=== PATIENT | female | born 1955 | race Caucasian/White ===

== ENCOUNTER 2016-05-06 04:47 | Outpatient (CLI) | payer OTHER ==
--- NOTE | 2016-05-06 08:22 | DIAGNOSTIC IMAGING REPORT ---
PROCEDURE: XR LUMBAR SPINE 2 OR 3 VIEWS INDICATION: PAIN TECHNIQUE: Three views of the lumbar spine COMPARISON: None. FINDINGS: Six non-rib bearing vertebral bodies are present. Normal vertebral body height without fracture. Mild leftward curvature with the apex at L3-4. Trace leftward subluxation of L4-5. Grade 1 retrolisthesis L1 onL2, L2 on 3, L3 -4, and grade 1 anterolisthesis L6 onS1. Moderate disc height loss at every level. Mild endplate spurring diffusely. Mild facet hypertrophy in the lower lumbar levels. The visible osseous pelvis and bowel gas pattern are normal. Surgical clips in the gallbladder fossa. IMPRESSION: 1. Multilevel degenerative disc height loss 2. Mild, multilevel degenerative listhesis as described
--- NOTE | 2016-05-06 08:25 | DIAGNOSTIC IMAGING REPORT ---
PROCEDURE: XR THORACIC SPINE 3 VIEWS INDICATION: PAIN TECHNIQUE: Three views of the thoracic spine COMPARISON: None. FINDINGS: 12 thoracic vertebral bodies are normal in height without fracture. Mild degenerative endplate spurring in the mid thoracic spine. The disc spaces are mildly decreased in the mid thoracic spine. No scoliosis. No AP subluxation. Paraspinal soft tissue stripe is normal. The visible soft tissues and ribs are normal. IMPRESSION: 1. Intact thoracic spine. 2. Mild degenerative changes.
== END 2016-05-06 23:00 ==
LOC: XR SRH 04:47
DX: M54.89 Other dorsalgia (principal)

== ENCOUNTER 2016-06-15 06:12 | Emergency (ER) | payer OTHER ==
--- NOTE | 2016-06-15 07:20 | DIAGNOSTIC IMAGING REPORT ---
PROCEDURE: XR CERVICAL SPINE 2 OR 3 VIEW INDICATION: NECK TRAUMA/INJURY TECHNIQUE: Three views. COMPARISON: None. FINDINGS: Normal alignment without fracture. Mild reversal of the normal cervical lordosis. Moderate multilevel disc space narrowing and spur formation. Odontoid, lateral masses of C1 and prevertebral soft tissues are normal. IMPRESSION: 1. Reversal of the normal cervical lordosis suggestive of muscular spasm 2. Moderate degenerative changes.
--- NOTE | 2016-06-15 08:04 | ED ORDER SUMMARY ---
..... Patient: JAYASHREE SHARP OrderSheet [facility] VisitID: [id number] [address] [place] [address] 61y, F Registration Date/Time: 06/15/2016 ORDER SHEET Weight: 127.0 kg Allergies: No Known Drug Allergy GENERAL ORDERS: Cervical Spine 2 or 3V Urgent (06:38 06/15/2016 Cheri Trammell) (Ack 6:40 Daron) (6:54 Don) MEDICATION ORDERS: IV FLUIDS: ORDER SHEET NOTES: [Electronically signed by Jose Maxwell Dr. (10:48 06/15/2016)] [Electronically signed by Steve Dias R.N. (18:47 06/15/2016)] [Electronically locked/signed by Steve Dias R.N. (18:47 06/15/2016)]
--- NOTE | 2016-06-15 08:04 | ED ORDER SUMMARY ---
..... Patient: JAYASHREE SHARP OrderSheet [facility] VisitID: [id number] [address] [place] [address] 61y, F Registration Date/Time: 06/15/2016 ORDER SHEET Weight: 127.0 kg Allergies: No Known Drug Allergy GENERAL ORDERS: Cervical Spine 2 or 3V Urgent (06:38 06/15/2016 Cheri Trammell) (Ack 6:40 Daron) (6:54 Don) MEDICATION ORDERS: IV FLUIDS: ORDER SHEET NOTES: [Electronically signed by Jose Maxwell Dr. (10:48 06/15/2016)] [Electronically signed by Steve Dias R.N. (18:47 06/15/2016)] [Electronically locked/signed by Steve Dias R.N. (18:47 06/15/2016)]
--- NOTE | 2016-06-15 08:04 | ED NURSING NOTES ---
Clinical Report - Nurses [facility] [address] [place] [address] 06/15/2016 6:13 Patient: JAYASHREE SHARP TRIAGE Triage time 06:18. Acuity: LEVEL 4. Chief Complaint: NECK PAIN. Alert. No acute distress. --06:24 TonyaB, R.N. 06:18 06/15/16. BP: 154/101. HR: 94. RR: 16. O2 saturation: 99%. Temp: 98.4 F. Pain level now: 07/10. --06:24 TonyaB, R.N. Weight: 127 kg. Height/Length: 65 inches. BMI: 46.6. --06:23 TonyaB, R.N. Medications Levoxyl Oral. --06:20 TonyaB, R.N. Zantac Oral. --06:20 TonyaB, R.N. Lisinopril-Hydrochlorothiazide Oral. --06:20 TonyaB, R.N. PROzac Oral. Zoloft Oral. --06:21 TonyaB, R.N. Allergies No Known Drug Allergy. --06:19 TonyaB, R.N. History Arrived by private vehicle. Historian: patient. ( pt states she fell one month ago and is now having neck pain and pain between her shoulder blades). 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 PAST MEDICAL HX: Tetanus status: up-to-date. Immunizations: up-to-date. SOCIAL HX: Never smoker. No alcohol use or drug use. No infectious disease exposure. SELF HARM ASSESSMENT: A self harm assessment was performed. The patient answered "no" to the question "Have you recently felt down, depressed, or hopeless?", "Have you noticed less interest or pleasure in doing things?", "Do you have thoughts of harming or killing yourself?", "Are you here because you tried to hurt yourself?", "Have you ever tried to hurt yourself before today?", "Have you recently had thoughts about harming or killing others?" and "Do you have any dangerous items in your possession?". FALL RISK ASSESSMENT: Fall risk assessment completed. No fall risk identified. NUTRITIONAL RISK ASSESSMENT: The nutritional risk assessment revealed no deficiencies. FUNCTIONAL ASSESSMENT: Functional assessment: no impairments noted. LEARNING NEEDS ASSESSMENT: The learning needs assessment revealed no barriers. SKIN INTEGRITY ASSESSMENT: Skin integrity risk assessment completed. No skin integrity risk identified. --06:24 Elvis Stover PROBLEMS: Hypothyroidism. Back Pain. Hypertension. --06:23 Elvis Stover ADDITIONAL SURGERIES: Cholecystectomy. Hysterectomy. Laminectomy. Lumpectomy of breast. --06:23 Elvis Stover Interventions ID band on patient. To treatment room. --06:24 Elvis Stover PHYSICAL ASSESSMENT Ambulatory to room. GENERAL / NEURO / PSYCH: Alert. Oriented X 4. Appears in no acute distress. RESPIRATORY: Respirations not labored. Chest nontender. Breath sounds within normal limits. CVS: Normal heart rate and rhythm. Capillary refill less than 2 seconds. GI / : Abdomen soft and nontender. Bowel sounds within normal limits. EXTREMITIES: Sensation intact in extremities. ROM of extremities within normal limits. BACK: Normal inspection of the neck and back. ROM of neck and back within normal limits. --06:24 Elvis Stover NURSING PROGRESS NOTES Patient identifiers checked. Call light placed in reach. Patient placed in chair. --06:24 Elvis Stover ( pt back from ay). --06:52 Elvis Stovre DISPOSITION / DISCHARGE Departure time: 08:Jun 15 2016. Condition at departure: improved. No learning barriers present. Discharge instructions provided and reviewed with the patient. Reviewed warnings. Reviewed medication(s). Treatments reviewed. Reviewed referrals. Work note given. Patient verbalized understanding. Written instructions provided in Chinese. The patient was discharged home. She left the Emergency Department ambulatory and via private vehicle. Patient driving. --08:11 Steve Dias R.N. 08:10 06/15/16. BP: 138/78. HR: 79. RR: 20. O2 saturation: 99%. Temp: 98.4 F. Pain level now 06/10. --08:11 Steve Dias R.N. Locked/Released at 06/15/2016 18:47 by Steve Dias R.N.
--- NOTE | 2016-06-15 08:04 | ED CLINICAL REPORT ---
Clinical Report - Physicians/Mid Levels [facility] [address] [place] [address] 06/15/2016 6:13 Patient: JAYASHREE SHARP Time Seen: 06:19; initial patient contact. Arrived- By private vehicle. Historian- patient. HISTORY OF PRESENT ILLNESS Chief Complaint: NECK PAIN. It is described as being moderate in degree and in the area of the left trapezius, left side of the cervical spine, right side of the cervical spine and right trapezius. The quality is noted to be aching. No radiation. Modifying factors- worsened by rotation of the head to the right or left or neck flexion. Relieved by remaining still or taking [id number] analgesics. Onset- about 1 month ago and it is still present. It was gradual in onset. No bladder dysfunction, bowel dysfunction, sensory loss or motor loss. Patient notes an injury. Mechanism of injury- (Chair fell over striking her head on the side of a desk.). Patient also notes injury to the head. Similar symptoms previously: None. Recent medical care: Not recently seen/assessed. REVIEW OF SYSTEMS No headache, nausea or vomiting. All systems otherwise negative, except as recorded above. PAST HISTORY Hypothyroidism. Back Pain. Hypertension. SURGERIES: Cholecystectomy. Hysterectomy. Laminectomy. Lumpectomy of breast. SOCIAL HISTORY Never smoker. No alcohol use or drug use. ADDITIONAL NOTES The nursing notes have been reviewed. PHYSICAL EXAM Vital Signs: 06/15/2016 06:18 BP: 154/101. HR: 94. RR: 16. O2 saturation: 99%. Temp: 98.4 F. Pain level now: 5/10. Have been reviewed. Hypertensive. Heart rate normal. Respiratory rate normal. Temperature normal. Oxygen saturation normal. Appearance: Alert. No acute distress. HEENT: Normal external inspection. Neck: Mild pain in the entire posterior neck upon turning the head to the right, turning the head to the left, flexing the neck and extending the neck. Moderate muscle spasm of the right and left posterior neck. Mild acute decrease in ROM secondary to pain. No vertebral tenderness. Mild soft tissue tenderness in the right upper, mid and lower neck area and left upper, mid and lower neck area. No meningeal signs. Neuro: Oriented X 3. Mood/affect normal. No motor deficit. No sensory deficit. Reflex exam: right triceps 2+, left triceps 2+, right brachioradialis 2+ and left brachioradialis 2+. LABS, X-RAYS, AND EKG C-Spine X-rays: Moderate straightening of the cervical spine. Mild degenerative joint disease with slight narrowing of disc spaces. Soft tissues normal. No fracture or subluxation. No bony lesion. Views: 3 view C-spine series. Technique: good. The X-rays were independently viewed by me and interpreted contemporaneously by me. Prior films were not available for comparison. PROGRESS AND PROCEDURES Disposition: Discharged home in good and improved condition. Condition: good. CLINICAL IMPRESSION Acute cervical strain. INSTRUCTIONS No lifting greater than 10 lbs until released. Your Current Medications: CONTINUE TAKING THE FOLLOWING MEDICATIONS: Levoxyl Oral. Lisinopril-Hydrochlorothiazide Oral. PROzac Oral. Zantac Oral. Zoloft Oral. Prescription Medications: Baclofen 20 mg: take 1 orally every 8 hours. Dispense thirty (30). No refills. Follow-up: Follow up with your doctor Friday as scheduled. Blood pressure screening was not performed during this visit because the patient has an active diagnosis of hypertension. (Electronically signed by Jose Maxwell Dr. 06/15/2016 10:48)
--- NOTE | 2016-06-15 08:04 | ED CLINICAL REPORT ---
Clinical Report - Physicians/Mid Levels [facility] [address] [place] [address] 06/15/2016 6:13 Patient: JAYASHREE SHARP Time Seen: 06:19; initial patient contact. Arrived- By private vehicle. Historian- patient. HISTORY OF PRESENT ILLNESS Chief Complaint: NECK PAIN. It is described as being moderate in degree and in the area of the left trapezius, left side of the cervical spine, right side of the cervical spine and right trapezius. The quality is noted to be aching. No radiation. Modifying factors- worsened by rotation of the head to the right or left or neck flexion. Relieved by remaining still or taking [id number] analgesics. Onset- about 1 month ago and it is still present. It was gradual in onset. No bladder dysfunction, bowel dysfunction, sensory loss or motor loss. Patient notes an injury. Mechanism of injury- (Chair fell over striking her head on the side of a desk.). Patient also notes injury to the head. Similar symptoms previously: None. Recent medical care: Not recently seen/assessed. REVIEW OF SYSTEMS No headache, nausea or vomiting. All systems otherwise negative, except as recorded above. PAST HISTORY Hypothyroidism. Back Pain. Hypertension. SURGERIES: Cholecystectomy. Hysterectomy. Laminectomy. Lumpectomy of breast. SOCIAL HISTORY Never smoker. No alcohol use or drug use. ADDITIONAL NOTES The nursing notes have been reviewed. PHYSICAL EXAM Vital Signs: 06/15/2016 06:18 BP: 154/101. HR: 94. RR: 16. O2 saturation: 99%. Temp: 98.4 F. Pain level now: 5/10. Have been reviewed. Hypertensive. Heart rate normal. Respiratory rate normal. Temperature normal. Oxygen saturation normal. Appearance: Alert. No acute distress. HEENT: Normal external inspection. Neck: Mild pain in the entire posterior neck upon turning the head to the right, turning the head to the left, flexing the neck and extending the neck. Moderate muscle spasm of the right and left posterior neck. Mild acute decrease in ROM secondary to pain. No vertebral tenderness. Mild soft tissue tenderness in the right upper, mid and lower neck area and left upper, mid and lower neck area. No meningeal signs. Neuro: Oriented X 3. Mood/affect normal. No motor deficit. No sensory deficit. Reflex exam: right triceps 2+, left triceps 2+, right brachioradialis 2+ and left brachioradialis 2+. LABS, X-RAYS, AND EKG C-Spine X-rays: Moderate straightening of the cervical spine. Mild degenerative joint disease with slight narrowing of disc spaces. Soft tissues normal. No fracture or subluxation. No bony lesion. Views: 3 view C-spine series. Technique: good. The X-rays were independently viewed by me and interpreted contemporaneously by me. Prior films were not available for comparison. PROGRESS AND PROCEDURES Disposition: Discharged home in good and improved condition. Condition: good. CLINICAL IMPRESSION Acute cervical strain. INSTRUCTIONS No lifting greater than 10 lbs until released. Your Current Medications: CONTINUE TAKING THE FOLLOWING MEDICATIONS: Levoxyl Oral. Lisinopril-Hydrochlorothiazide Oral. PROzac Oral. Zantac Oral. Zoloft Oral. Prescription Medications: Baclofen 20 mg: take 1 orally every 8 hours. Dispense thirty (30). No refills. Follow-up: Follow up with your doctor Friday as scheduled. Blood pressure screening was not performed during this visit because the patient has an active diagnosis of hypertension. (Electronically signed by Jose Maxwell Dr. 06/15/2016 10:48)
--- NOTE | 2016-06-15 08:04 | ED NURSING NOTES ---
Clinical Report - Nurses [facility] [address] [place] [address] 06/15/2016 6:13 Patient: JAYASHREE SHARP TRIAGE Triage time 06:18. Acuity: LEVEL 4. Chief Complaint: NECK PAIN. Alert. No acute distress. --06:24 TonyaB, R.N. 06:18 06/15/16. BP: 154/101. HR: 94. RR: 16. O2 saturation: 99%. Temp: 98.4 F. Pain level now: 07/10. --06:24 TonyaB, R.N. Weight: 127 kg. Height/Length: 65 inches. BMI: 46.6. --06:23 TonyaB, R.N. Medications Levoxyl Oral. --06:20 TonyaB, R.N. Zantac Oral. --06:20 TonyaB, R.N. Lisinopril-Hydrochlorothiazide Oral. --06:20 TonyaB, R.N. PROzac Oral. Zoloft Oral. --06:21 TonyaB, R.N. Allergies No Known Drug Allergy. --06:19 TonyaB, R.N. History Arrived by private vehicle. Historian: patient. ( pt states she fell one month ago and is now having neck pain and pain between her shoulder blades). 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 PAST MEDICAL HX: Tetanus status: up-to-date. Immunizations: up-to-date. SOCIAL HX: Never smoker. No alcohol use or drug use. No infectious disease exposure. SELF HARM ASSESSMENT: A self harm assessment was performed. The patient answered "no" to the question "Have you recently felt down, depressed, or hopeless?", "Have you noticed less interest or pleasure in doing things?", "Do you have thoughts of harming or killing yourself?", "Are you here because you tried to hurt yourself?", "Have you ever tried to hurt yourself before today?", "Have you recently had thoughts about harming or killing others?" and "Do you have any dangerous items in your possession?". FALL RISK ASSESSMENT: Fall risk assessment completed. No fall risk identified. NUTRITIONAL RISK ASSESSMENT: The nutritional risk assessment revealed no deficiencies. FUNCTIONAL ASSESSMENT: Functional assessment: no impairments noted. LEARNING NEEDS ASSESSMENT: The learning needs assessment revealed no barriers. SKIN INTEGRITY ASSESSMENT: Skin integrity risk assessment completed. No skin integrity risk identified. --06:24 Elvis Stover PROBLEMS: Hypothyroidism. Back Pain. Hypertension. --06:23 Elvis Stover ADDITIONAL SURGERIES: Cholecystectomy. Hysterectomy. Laminectomy. Lumpectomy of breast. --06:23 Elvis Stover Interventions ID band on patient. To treatment room. --06:24 Elvis Stover PHYSICAL ASSESSMENT Ambulatory to room. GENERAL / NEURO / PSYCH: Alert. Oriented X 4. Appears in no acute distress. RESPIRATORY: Respirations not labored. Chest nontender. Breath sounds within normal limits. CVS: Normal heart rate and rhythm. Capillary refill less than 2 seconds. GI / : Abdomen soft and nontender. Bowel sounds within normal limits. EXTREMITIES: Sensation intact in extremities. ROM of extremities within normal limits. BACK: Normal inspection of the neck and back. ROM of neck and back within normal limits. --06:24 Elvis Stover NURSING PROGRESS NOTES Patient identifiers checked. Call light placed in reach. Patient placed in chair. --06:24 Elvis Stover ( pt back from ay). --06:52 Elvis Stover DISPOSITION / DISCHARGE Departure time: 08:Jun 15 2016. Condition at departure: improved. No learning barriers present. Discharge instructions provided and reviewed with the patient. Reviewed warnings. Reviewed medication(s). Treatments reviewed. Reviewed referrals. Work note given. Patient verbalized understanding. Written instructions provided in Syriac. The patient was discharged home. She left the Emergency Department ambulatory and via private vehicle. Patient driving. --08:11 Steve Dias R.N. 08:10 06/15/16. BP: 138/78. HR: 79. RR: 20. O2 saturation: 99%. Temp: 98.4 F. Pain level now 06/10. --08:11 Steve Dias R.N. Locked/Released at 06/15/2016 18:47 by Steve Dias R.N.
--- NOTE | 2016-06-15 18:48 | ED MED RECONCILIATION SUMMARY ---
Patient: JAYASHREE SHARP Medication Reconciliation Report [facility] VisitID: [id number] [address] [place] [address] 61y, F Registration Date/Time: 06/15/2016 Weight: 127.0 kg Height/Length: 65 in. BMI: 46.6 ALLERGIES: No Known Drug Allergy The patient's Home Medications are listed below: CONTINUE TAKING THE FOLLOWING MEDICATIONS: Levoxyl Oral Lisinopril-Hydrochlorothiazide Oral PROzac Oral Zantac Oral Zoloft Oral The source(s) of the original Home Medication information: Not obtained. The following Medications were given to the patient in the Emergency Department: None. The following Medications were prescribed to the patient: Baclofen 20 mg: take 1 orally every 8 hours. Dispense thirty (30). No refills. -- Jose Maxwell Dr.
--- NOTE | 2016-06-15 18:48 | ED MAR SUMMARY ---
..... Medication Administration Record [facility] [address] [place], [place] [id number] Patient: JAYASHREE SHARP Visit ID: [id number] 61y, F Weight: 127.0 kg Height/Length: 65 in BMI: 46.6 ALLERGIES: No Known Drug Allergy
--- NOTE | 2016-06-15 18:48 | ED MAR SUMMARY ---
..... Medication Administration Record [facility] [address] [place], [place] [id number] Patient: JAYASHREE SHARP Visit ID: [id number] 61y, F Weight: 127.0 kg Height/Length: 65 in BMI: 46.6 ALLERGIES: No Known Drug Allergy
--- NOTE | 2016-06-15 18:48 | ED DISCHARGE INSTRUCTIONS ---
Patient: JAYASHREE SHARP General Instructions [facility] VisitID: [id number] [address] [place] [address] 61y, F Registration Date/Time: 06/15/2016 Acute cervical strain. INSTRUCTIONS No lifting greater than 10 lbs until released. Your Current Medications: CONTINUE TAKING THE FOLLOWING MEDICATIONS: Levoxyl Oral. Lisinopril-Hydrochlorothiazide Oral. PROzac Oral. Zantac Oral. Zoloft Oral. Prescription Medications: Baclofen 20 mg: take 1 orally every 8 hours. Dispense thirty (30). No refills. Follow-up: Follow up with your doctor Friday as scheduled. Blood pressure screening was not performed during this visit because the patient has an active diagnosis of hypertension. ADDITIONAL INFORMATION Neck Sprain Or Strain A sudden force that causes turning or bending of the neck (such as in a car accident) can stretch or tear muscles (strain) and ligaments (sprain) and cause neck pain. Sometimes neck pain occurs after a simple awkward movement. In either case, muscle spasm is commonly present and contributes to the pain. Unless you had a forceful physical injury (for example, a car accident or fall), X-rays are usually not ordered for the initial evaluation of neck pain. If pain continues and dose not respond to medical treatment, X-rays and other tests may be performed at a later time. Home care The following guidelines will help you care for your injury at home: You may feel more soreness and spasm the first few days after the injury. Reduce your activity level until symptoms begin to improve. When lying down, use a comfortable pillow that supports the head and keeps the spine in a neutral position. The position of the head should not be tilted forward or backward. Use ice packs (ice in a plastic bag, wrapped in a towel) to treat acute pain. Apply for 20 minutes every 24 hours during the first two days. Then, begin local heat (hot shower, hot bath or heating pad) andmassageto reduce muscle spasm. Some patients feel best alternating hot and cold treatments, or just staying with one method only. Do what feels the best to you and gives the most relief. You may use acetaminophen or ibuprofen to control pain, unless another pain medicine was prescribed.If you have chronic liver or kidney disease or ever had a stomach ulcer or GI bleeding, talk with your doctor before using these medicines. Follow-up care Follow up with your physician or this facility if your symptoms do not show signs of improvement. Physical therapy may be needed. If you had X-rays today, they didnt show any broken bones, breaks, or fractures. Sometimes fractures dont show up on the first X-ray. Bruises and sprains can sometimes hurt as much as a fracture. These injuries can take time to heal completely. If your symptoms dont improve or they get worse, talk with your doctor. You may need a repeat X-ray. When to seek medical care Get prompt medical attention if any of the following occur: Pain becomes worse or spreads into your arms Weakness or numbness in one or both arms You have been given the following additional information: Neck Sprain/Strain No lifting greater than 10 lbs until released. (Electronically signed by Jose Maxwell Dr. 06/15/2016 10:48)
--- NOTE | 2016-06-15 18:48 | ED MED RECONCILIATION SUMMARY ---
Patient: JAYASHREE SHARP Medication Reconciliation Report [facility] VisitID: [id number] [address] [place] [address] 61y, F Registration Date/Time: 06/15/2016 Weight: 127.0 kg Height/Length: 65 in. BMI: 46.6 ALLERGIES: No Known Drug Allergy The patient's Home Medications are listed below: CONTINUE TAKING THE FOLLOWING MEDICATIONS: Levoxyl Oral Lisinopril-Hydrochlorothiazide Oral PROzac Oral Zantac Oral Zoloft Oral The source(s) of the original Home Medication information: Not obtained. The following Medications were given to the patient in the Emergency Department: None. The following Medications were prescribed to the patient: Baclofen 20 mg: take 1 orally every 8 hours. Dispense thirty (30). No refills. -- Jose Maxwell Dr.
== END 2016-06-15 08:10 | disposition home or self-care (01) ==
LOC: ED SRH 06:12
DX: S16.1XXA Strain of muscle, fascia and tendon at neck level, initial encounter (principal); W01.198A Fall on same level from slipping, tripping and stumbling with subsequent striking against other object, initial encounter; Y93.89 Activity, other specified; Y92.89 Other specified places as the place of occurrence of the external cause; Y99.9 Unspecified external cause status; I10 Essential (primary) hypertension